=== PATIENT | female | born 1960 ===

== ENCOUNTER 2022-03-04 16:19 | Inpatient (IN) | payer SELFPAY ==
[~2022-03-04 16:19] MED LIST: Iopamidol 370 76% 100 ML VIAL ONE; Iopamidol 370 76% 50 ML VIAL FS ONE; Iopamidol-370 76% 500 ML 1 ML ONE
[2022-03-04] MEDS ORDERED: Sodium Bicarb 50 MEQ/50 ML Abboject 8.4% SYRINGE ONE (16:21)
[2022-03-04] MEDS ORDERED: Calcium Chloride 1 GM/10 ML Abboject SYRINGE ONE (16:21)
[2022-03-04] MEDS ORDERED: niCARdipine 25 MG/10 ML VIAL ONE ×3 (16:23→16:25)
[2022-03-04] MEDS ORDERED: Esmolol 2,500 MG/250 ML 0 ML ONE (16:23)
[2022-03-04] MEDS ORDERED: Esmolol 2,500 MG/250 ML 250 ML ONE (16:25)
[2022-03-04 16:34] LABS: Actual Bicarbonate (HCO3a) 19.9 mEq/L (22-28); Analyzer IN Cardio ER; Base Excess (BEa) -11.1 mEq/L (-2.0 to +3.0); Calcium, Ionized (arterial) 1.27 mmol/L (1.12-1.30); Carboxyhemoglobin (COHb) 0.2 gm% (0.0-3.0); Hemoglobin (Hb) 13.3 g/dL (12.0-16.0); O2 Tension (PaO2), arterial 82.3 mmHg (> 80.0); Potassium - ABG Lab 2.89 mmol/L (3.70-5.30)
[2022-03-04 16:35] LABS: ALV-art Gradient 544.075 mmHg (0-20); CO2 Tension 69.3 mmHg (35.0-45.0); Puncture Site RBA; pH, Arterial 7.08 (7.35-7.45)
[2022-03-04 16:45] LABS: Mean Corpuscular HGB CONC 31.3 g/dL (32.0-36.0); Mean Platelet Volume 8.9 fL (7.4-10.4); Platelet Count 160 thou/uL (130-400); RBC Distribution Width 13.4 % (11.5-14.5); Red Blood Cell (RBC) Count 4.18 mill/uL (4.20-5.40); White Blood Cell (WBC) Count 15.3 thou/uL (4.8-10.8)
[2022-03-04] MEDS ORDERED: Fentanyl 100 MCG/2 ML VIAL ONE (16:53)
[2022-03-04 16:54] LABS: ALT (SGPT) 298 U/L (8-55); AST (SGOT) 413 U/L (5-34); Albumin 2.8 g/dL (3.5-5.0); Alkaline Phosphatase 122 U/L (40-110); Anion Gap 27 mmol/L (10-20); BUN (Urea Nitrogen) 36 mg/dL (9.8-20.1); Bilirubin, Total 0.8 mg/dL (0.2-1.2); Calc. Creatinine Clearance 0 mL/min (70-130); Calcium 8.6 mg/dL (7.8-10.44); Carbon Dioxide 17 mmol/L (22-29); Chloride 110 mmol/L (98-107); Globulin 2.1 g/dL (2.4-3.5); Glucose 277 mg/dL (70-105); Potassium 3.1 mmol/L (3.5-5.1); Protein, Total 4.9 g/dL (6.0-8.3); Sodium 151 mmol/L (136-145)
[2022-03-04 16:55] LABS: #Eosinphils 0.5 thou/uL (0.0-0.7); #Lymphocytes 3.3 thou/uL (1.20-3.40); #Monocytes 0.5 thou/uL (0.11-0.59); #Neutrophils 11.1 thou/uL (1.40-6.50); %Basophils 0.3 % (0.0-1.0); %Eosinophils 3.1 % (0.0-10.0); %Lymphocytes 21.4 % (21.0-51.0); %Monocytes 3.1 % (0.0-10.0); %Neutrophils 72.2 % (42.0-75.0); Band 9 % (5-11); Lymphocytes 19 % (21-51); MDiff Complete? YES; Metamyelocyte 3 % (0-0); Monocytes 1 % (0-10); Neutrophil 66 % (42-75); Platelet Morphology Comment Appears Adequate; RBC Morphology Normal; Reactive Lymphocytes 2 % (0-10)
[2022-03-04 17:20] LABS: INR-International Normal Ratio 1.5; PTT 38.9 sec (22.9-36.1)
[2022-03-04 17:27] LABS: Lipase 30 U/L (8-78); Magnesium 2.8 mg/dL (1.6-2.6)
[2022-03-04] MEDS ORDERED: Piperacillin/Tazobactam 4.5 GM VIAL ONE (17:44)
[2022-03-04 17:49] LABS: CKMB 4.4 ng/mL (0-6.6)
[2022-03-04] MEDS ORDERED: Adenosine 6 MG/2 ML VIAL ONE (17:54)
[2022-03-04] MEDS ORDERED: Verapamil 5 MG/2 ML VIAL ONE (17:54)
[2022-03-04] MEDS ORDERED: Lidocaine 1% (PF) 30 ML VIAL ONE (17:54)
[2022-03-04] MEDS ORDERED: Heparin 10,000 UNITS/ 10 ML VIAL ONE (17:54)
[2022-03-04] MEDS ORDERED: Nitroglycerin 100MG/250ML BOT 250 ML ONE (17:54)
[2022-03-04] MEDS ORDERED: Clopidogrel Bisulfate 300 MG TAB ONE ×2 (20:17)
[2022-03-04] MEDS: Sodium Chloride 0.9% 1,000 ML IV SCH (21:00)
[2022-03-04 21:30] LABS: Lactic Acid 3.4 mmol/L (0.5-2.2)
[2022-03-04 21:39] LABS: #Lymphocytes 0.6 thou/uL (1.20-3.40); #Neutrophils 18.3 thou/uL (1.40-6.50); %Basophils 0.2 % (0.0-1.0); %Eosinophils 0.2 % (0.0-10.0); %Lymphocytes 2.9 % (21.0-51.0); %Monocytes 4.8 % (0.0-10.0); %Neutrophils 91.9 % (42.0-75.0); Hemoglobin 11.5 g/dL (12.0-16.0); Mean Corpuscular HGB CONC 32.1 g/dL (32.0-36.0); Mean Corpuscular Hemoglobin 31.7 pg (27.0-31.0); Mean Corpuscular Volume 98.9 fL (78.0-98.0); Mean Platelet Volume 8.4 fL (7.4-10.4); Platelet Count 172 thou/uL (130-400); RBC Distribution Width 13.4 % (11.5-14.5); Red Blood Cell (RBC) Count 3.63 mill/uL (4.20-5.40); White Blood Cell (WBC) Count 19.9 thou/uL (4.8-10.8)
[2022-03-04] MEDS ORDERED: Lorazepam 2 MG/ML VIAL SLOW IVP PRN (21:45)
[2022-03-04] MEDS ORDERED: Propofol BOLUS 1,000 MG/100 ML VIAL IV PRN (21:45)
[2022-03-04] MEDS ORDERED: fentaNYL Citrate-0.9 % NaCl/PF 100 ML IV SCH (21:45)
[2022-03-04] MEDS ORDERED: Propofol 1,000 MG/100 ML VIAL IV PRN (21:45)
[2022-03-04] MEDS ORDERED: Morphine 4 MG/ML VIAL SLOW IVP PRN (21:45)
[2022-03-04] MEDS ORDERED: DISCONTINUE PREVIOUS NARCOTIC PAIN MEDICATIONS AND BENZODIAZEPINES FS SCH (21:45)
[2022-03-04] MEDS ORDERED: Fentanyl BOLUS 250 ML IVPB PRN (21:45)
[2022-03-04 21:49] LABS: Base Excess (BEa) -8.1 mEq/L (-2.0 to +3.0); CO2 Tension 45.1 mmHg (35.0-45.0); Calcium, Ionized (arterial) 1.07 mmol/L (1.12-1.30); Carboxyhemoglobin (COHb) 0.2 gm% (0.0-3.0); Hemoglobin (Hb) 13.5 g/dL (12.0-16.0); O2 Tension (PaO2), arterial 148.4 mmHg (> 80.0); Potassium - ABG Lab 4.33 mmol/L (3.70-5.30)
[2022-03-04 21:54] LABS: pH, Arterial 7.24 (7.35-7.45)
[2022-03-04 21:55] LABS: ALV-art Gradient 294.325 mmHg (0-20); Puncture Site LRA
[2022-03-04] MEDS ORDERED: Dextrose 50% Abboject 50 ML SYRINGE IVP PRN (22:00)
[2022-03-04] MEDS ORDERED: Dextrose 5% in Water 1,000 ML IV PRN (22:00)
[2022-03-04] MEDS: NS 0.9% w/ 40 MEQ KCL 1,000 ML IV SCH (22:05)
[2022-03-04 22:08] LABS: Troponin I 81.093 ng/mL (< 0.028)
[2022-03-04 22:10] LABS: Anion Gap 29 mmol/L (10-20); BUN (Urea Nitrogen) 35 mg/dL (9.8-20.1); Calc. Creatinine Clearance 0 mL/min (70-130); Calcium 6.4 mg/dL (7.8-10.44); Carbon Dioxide 17 mmol/L (22-29); Chloride 114 mmol/L (98-107); Glucose 166 mg/dL (70-105); Potassium 3.9 mmol/L (3.5-5.1); Sodium 156 mmol/L (136-145)
[2022-03-04 22:26] LABS: Bacteria/HPF 4+ HPF (None Seen); Bilirubin Negative (Negative); Blood, Urine 3+ (Negative); Clarity Extra Turbid (Clear); Glucose, Urine (Dipstick) 50 mg/dL (Negative); Ketone, Urine Negative (Negative); Leukocyte 500 Leu/uL (Negative); Nitrite Negative (Negative); Protein, Urine (Dipstick) 100 mg/dL (Neg-Trace); RBC/HPF Greater than 50 HPF (0-3); Specific Gravity, Urine 1.014 (1.002-1.036); Urobilinogen Normal mg/dL (Less than 2); WBC/HPF Greater than 50 HPF (0-3)
[2022-03-04 22:28] LABS: Urine Culture Reflex No No
[2022-03-04] MEDS ORDERED: DOPamine 400 MG/D5W 250 ML 250 ML ONE (22:34)
[2022-03-04] MEDS ORDERED: Sodium Chloride 0.9% 500 ML IV SCH (22:45)
[2022-03-04] MEDS ORDERED: DOPamine 400 MG/D5W 250 ML 250 ML IVPB SCH (22:45)
[2022-03-04] MEDS: Insulin Regular 300 UNITS/3 ML VIAL SC PRN (23:55)
[2022-03-05 03:55] LABS: Hemoglobin 12.3 g/dL (12.0-16.0); Mean Corpuscular HGB CONC 31.8 g/dL (32.0-36.0); Mean Corpuscular Hemoglobin 30.9 pg (27.0-31.0); Mean Corpuscular Volume 97.3 fL (78.0-98.0); Mean Platelet Volume 8.6 fL (7.4-10.4); Platelet Count 169 thou/uL (130-400); RBC Distribution Width 13.4 % (11.5-14.5); Red Blood Cell (RBC) Count 3.97 mill/uL (4.20-5.40); White Blood Cell (WBC) Count 21.4 thou/uL (4.8-10.8)
[2022-03-05 04:24] LABS: Band 7 % (5-11); Lymphocytes 5 % (21-51); MDiff Complete? YES; Monocytes 2 % (0-10); Neutrophil 86 % (42-75)
[2022-03-05 04:53] LABS: ALT (SGPT) 354 U/L (8-55); AST (SGOT) 852 U/L (5-34); Albumin 2.6 g/dL (3.5-5.0); Alkaline Phosphatase 103 U/L (40-110); Anion Gap 17 mmol/L (10-20); BUN (Urea Nitrogen) 49 mg/dL (9.8-20.1); Calc. Creatinine Clearance 23 mL/min (70-130); Calcium 7.4 mg/dL (7.8-10.44); Carbon Dioxide 20 mmol/L (22-29); Chloride 112 mmol/L (98-107); Globulin 1.9 g/dL (2.4-3.5); Glucose 148 mg/dL (70-105); Potassium 4.8 mmol/L (3.5-5.1); Protein, Total 4.5 g/dL (6.0-8.3); Sodium 144 mmol/L (136-145)
[2022-03-05] MEDS: Sodium Chloride 0.9% 1,000 ML IV SCH ×3 (06:13→21:41)
[2022-03-05] MEDS ORDERED: Dexmedetomidine In 0.9 % NaCl 100 ML IVPB SCH (08:00)
[2022-03-05] MEDS: NS 0.9% w/ 40 MEQ KCL 1,000 ML IV SCH ×3 (08:49→21:42)
[2022-03-05] MEDS: Pantoprazole 40 MG VIAL IVP SCH (09:58)
[2022-03-05] MEDS: cefTRIAXone\\ROCEPHIN 2 GM in Sodium Chloride 0.9% 100 ML IVPB SCH (10:03)
[2022-03-05 11:36] LABS: SARS-CoV-2 NAA Rapid Test Not Detected (NotDetected)
[2022-03-05 12:08] LABS: Actual Bicarbonate (HCO3a) 13.2 mEq/L (22-28); Base Excess (BEa) -10.4 mEq/L (-2.0 to +3.0); Calcium, Ionized (arterial) 1.01 mmol/L (1.12-1.30); Carboxyhemoglobin (COHb) 0.2 gm% (0.0-3.0); Hemoglobin (Hb) 13.1 g/dL (12.0-16.0); O2 Tension (PaO2), arterial 114.5 mmHg (> 80.0); pH, Arterial 7.35 (7.35-7.45)
[2022-03-05 12:10] LABS: ALV-art Gradient 282.925 mmHg (0-20); CO2 Tension 24.3 mmHg (35.0-45.0); Puncture Site RBA
[2022-03-05] MEDS ORDERED: PROPOFOL 200 MG/20 ML VIAL IV SCH (19:15)
[2022-03-05] MEDS ORDERED: Rocuronium Bromide 10 MG/ML (10ML VIAL) IVP SCH (19:15)
[2022-03-05 19:50] LABS: SARS-CoV-2 PCR by NAA Not Detected (NotDetected)
[2022-03-05] MEDS: Esmolol 2,500 MG/250 ML 250 ML IVPB SCH (20:06)
[2022-03-05] MEDS: Insulin Regular 300 UNITS/3 ML VIAL SC PRN (21:42)
[2022-03-06 04:12] LABS: #Lymphocytes 1.5 thou/uL (1.20-3.40); #Monocytes 0.8 thou/uL (0.11-0.59); #Neutrophils 14.9 thou/uL (1.40-6.50); %Basophils 0.1 % (0.0-1.0); %Eosinophils 0.1 % (0.0-10.0); %Lymphocytes 8.8 % (21.0-51.0); %Monocytes 4.8 % (0.0-10.0); %Neutrophils 86.2 % (42.0-75.0); Hemoglobin 11.8 g/dL (12.0-16.0); Mean Corpuscular HGB CONC 31.4 g/dL (32.0-36.0); Mean Corpuscular Hemoglobin 30.5 pg (27.0-31.0); Mean Corpuscular Volume 97.2 fL (78.0-98.0); Mean Platelet Volume 9.5 fL (7.4-10.4); Platelet Count 183 thou/uL (130-400); RBC Distribution Width 14.2 % (11.5-14.5); Red Blood Cell (RBC) Count 3.89 mill/uL (4.20-5.40); White Blood Cell (WBC) Count 17.3 thou/uL (4.8-10.8)
[2022-03-06 04:36] LABS: ALT (SGPT) 407 U/L (8-55); AST (SGOT) 556 U/L (5-34); Albumin 2.8 g/dL (3.5-5.0); Alkaline Phosphatase 87 U/L (40-110); Anion Gap 22 mmol/L (10-20); BUN (Urea Nitrogen) 75 mg/dL (9.8-20.1); Bilirubin, Total 0.8 mg/dL (0.2-1.2); Calc. Creatinine Clearance 13 mL/min (70-130); Calcium 7.3 mg/dL (7.8-10.44); Carbon Dioxide 15 mmol/L (22-29); Chloride 116 mmol/L (98-107); Globulin 2.1 g/dL (2.4-3.5); Glucose 138 mg/dL (70-105); Potassium 5.1 mmol/L (3.5-5.1); Protein, Total 4.9 g/dL (6.0-8.3); Sodium 148 mmol/L (136-145)
[2022-03-06 04:51] LABS: HBSAg Index 0.22 S/CO (0-0.99); Hep B Surf Ag Non-Reactive S/CO (NonReactive)
[2022-03-06] MEDS: NS 0.9% w/ 40 MEQ KCL 1,000 ML IV SCH (05:00)
[2022-03-06] MEDS: Esmolol 2,500 MG/250 ML 250 ML IVPB SCH (06:47)
[2022-03-06] MEDS: Sodium Chloride 0.9% 1,000 ML IV SCH (06:47)
[2022-03-06] MEDS ORDERED: Sodium Bicarbonate 150 MEQ in Dextrose 5% in Water 1,000 ML IV SCH (07:30)
[2022-03-06 07:32] LABS: Actual Bicarbonate (HCO3a) 13.6 mEq/L (22-28); Base Excess (BEa) -9.5 mEq/L (-2.0 to +3.0); Carboxyhemoglobin (COHb) 0.3 gm% (0.0-3.0); Hemoglobin (Hb) 11.9 g/dL (12.0-16.0); O2 Tension (PaO2), arterial 183.2 mmHg (> 80.0); Potassium - ABG Lab 4.88 mmol/L (3.70-5.30); pH, Arterial 7.39 (7.35-7.45)
[2022-03-06 07:34] LABS: ALV-art Gradient 215.725 mmHg (0-20); CO2 Tension 23.1 mmHg (35.0-45.0); Puncture Site RRA
[2022-03-06] MEDS: Pantoprazole 40 MG VIAL IVP SCH (09:48)
[2022-03-06] MEDS: cefTRIAXone\\ROCEPHIN 2 GM in Sodium Chloride 0.9% 100 ML IVPB SCH (10:33)
[2022-03-06 10:59] VITALS: BMI 29.1
[2022-03-06 14:14] VITALS: TEMP 97.9
[2022-03-06] MEDS ORDERED: Aspirin Chewable 81 MG TAB ONE (14:15)
[2022-03-06] MEDS ORDERED: Aspirin 81 mg Enteric Coated Tablet PO SCH (14:30)
[2022-03-06] MEDS ORDERED: Clopidogrel Bisulfate 75 MG TAB PO SCH (14:30)
== END 2022-03-06 14:40 | disposition short-term general hospital (02) | DRG 246 ==
LOC: ERS 16:19 → SDC/OP 18:17 → CCU 20:44
PROVIDERS: ADMIT Internal Medicine Cardiovascular Disease; ATTEND Internal Medicine Cardiovascular Disease
PROC: 027036Z Dilation of Coronary Artery, One Artery with Three Drug-eluting Intraluminal Devices, Percutaneous Approach (ICD-10-PCS; principal; 2022-03-04)
PROC: 4A023N7 Measurement of Cardiac Sampling and Pressure, Left Heart, Percutaneous Approach (ICD-10-PCS; 2022-03-04)
PROC: B2111ZZ Fluoroscopy of Multiple Coronary Arteries using Low Osmolar Contrast (ICD-10-PCS; 2022-03-04)
PROC: B2151ZZ Fluoroscopy of Left Heart using Low Osmolar Contrast (ICD-10-PCS; 2022-03-04)
PROC: 5A1945Z Respiratory Ventilation, 24-96 Consecutive Hours (ICD-10-PCS; 2022-03-04)
PROC: 0D9770Z Drainage of Stomach, Pylorus with Drainage Device, Via Natural or Artificial Opening (ICD-10-PCS; 2022-03-04)
PROC: 06HY33Z Insertion of Infusion Device into Lower Vein, Percutaneous Approach (ICD-10-PCS; 2022-03-04)
PROC: 06HY33Z Insertion of Infusion Device into Lower Vein, Percutaneous Approach (ICD-10-PCS; 2022-03-06)
PROC: 5A1D70Z Performance of Urinary Filtration, Intermittent, Less than 6 Hours Per Day (ICD-10-PCS; 2022-03-06)
DX: I21.11 ST elevation (STEMI) myocardial infarction involving right coronary artery (principal); I46.2 Cardiac arrest due to underlying cardiac condition; J96.00 Acute respiratory failure, unspecified whether with hypoxia or hypercapnia; N17.9 Acute kidney failure, unspecified; Z66 Do not resuscitate; E87.2 Acidosis; Z20.822 Contact with and (suspected) exposure to COVID-19; N18.9 Chronic kidney disease, unspecified; R74.01 Elevation of levels of liver transaminase levels; I25.10 Atherosclerotic heart disease of native coronary artery without angina pectoris; Z78.1 Physical restraint status
CPT/HCPCS: 36415; 36416; 36556; 36600; 51702; 70450; 71045; 71275; 74174; 80053; 81001; 82553; 82805; 83605; 83690; 83735; 83880; 84443; 84484; 85025; 85347; 85610; 85730; 86850; 86900; 86901; 87086; 87340; 92929; 93005; 93010; 93306; 93458; 94002; 94003; 96365; 96375; 96376; C1725; C1769; C1874; C9113; C9601; J0153; J0696; J1265; J1642; J1644; J1815; J2001; J2543; J2704; J3010; J3480; J3490; J7050; J7070; Q9967; U0002; U0003; U0005